=== PATIENT | female | born 1975 | race Two or more races ===

== ENCOUNTER 2018-02-25 14:57 | Outpatient (CLI) | payer OTHER | END 2018-02-25 16:19 | disposition home or self-care (01) | LOC: RAD 501 14:57 | DX: M79.671 Pain in right foot (principal) ==

== ENCOUNTER → 2018-03-12 | Outpatient (CLI) | payer OTHER | END | disposition home or self-care (01) | LOC: RAD 501 14:09 | DX: S92.354D Nondisplaced fracture of fifth metatarsal bone, right foot, subsequent encounter for fracture with routine healing (principal) ==

== ENCOUNTER 2022-08-21 14:41 | Emergency (ER) | payer OTHER ==
[~2022-08-21] VITALS: Ht 154.9 cm; Wt 47.6 kg
== END 2022-08-21 20:53 | disposition home or self-care (01) ==
LOC: ER 14:41
DX: R10.2 Pelvic and perineal pain (principal); Z88.6 Allergy status to analgesic agent; Z88.8 Allergy status to other drugs, medicaments and biological substances

== ENCOUNTER 2022-08-23 08:06 | Outpatient (CLI) | payer OTHER | END 2022-08-23 15:11 | disposition home or self-care (01) | LOC: TOM 08:06 | PROVIDERS: ATTEND General Practice | DX: J92.9 Pleural plaque without asbestos (principal); R10.9 Unspecified abdominal pain; R10.32 Left lower quadrant pain ==